=== PATIENT | female | born 1995 | race Caucasian/White ===

== ENCOUNTER → 2020-12-09 02:29 | Outpatient (CLI) | payer BC, SELFPAY ==
[2020-12-09 20:00] LABS: SARS-CoV-2 RNA PCR Negative
== END ==
PROVIDERS: Visit Provider Obstetrics & Gynecology
DX: Z01.812 Encounter for preprocedural laboratory examination (principal); Z20.822 Contact with and (suspected) exposure to COVID-19
CPT/HCPCS: C9803; U0003; U0005

== ENCOUNTER 2020-12-10 02:09 | Day surgery (SDC) | payer BC, SELFPAY ==
--- NOTE | 2020-12-09 07:40 | PM.IMHP ---
H&P: HPI History of Present Illness Date/Time: 12/09/20 07:40 [age] year 3 para 2 these last menstrual period was 09/09/2019 presents at 11 weeks gestation with missed AB. No heart tones were found 11 12 week visit. Eleven week size IUP was seen with the she opts for suction D& C. Risks benefits reviewed in full Chief Complaint: 1st trimester missed AB Review of Systems Review of Systems: All systems reviewed & are unremarkable except as noted in HPI and below PMFSH Social History Social History Smoking status: Never smoker Spiritual care concerns: No Meds Home Medications and Allergies Home Medications Medication Instructions Recorded Confirmed Type lactobacillus combination no.8 1 cell PO DAILY 12/08/20 12/08/20 History [Adult Probiotic] polyethylene glycol 3350 [Miralax] 17 g PO DAILY 12/08/20 12/08/20 History Allergies Allergy/AdvReac Type Severity Reaction Status Date / Time Penicillins Allergy Unknown Rash Verified 12/08/20 13:51 Exam Const: General: no acute distress Eyes: General: appearance normal, both eyes and all related structures Neck: Neck: supple and no JVD Thyroid: thyroid normal Resp: Effort & Inspection: normal respiratory effort Auscultation: clear to auscultation bilaterally Cardio: Rate: regular rate Rhythm: regular rhythm GI: Inspection: non-distended GI Palp: Yes Soft to palpation, No Tenderness to palpation present (GI) and No Guarding due to palpation present (GI) Auscultation: normal bowel sounds : External Female Exam: normal external appearance Speculum Exam - Vagina: normal appearance of the vagina Speculum Exam - Cervix: Cervical os closed Bimanual exam- vagina & uterus: enlarged Bimanual Exam- Adnexa, other: normal adnexae Skin: General skin exam: no rashes or lesions noted Extrem: General: normal to inspection and no edema Psych: Mental Status: mental status grossly normal Affect: normal affect Assessment and Plan Additional Plan Impression: 1st trimester missed AB Plan suction dilatation curettage
--- NOTE | 2020-12-09 13:22 | P.PNAN_ITS ---
Anes - Initial Pre Proc Eval Procedure: Operation Date: 12/10/20 13:15 Proposed Procedures p Suction Dilatation and Curettage - Cesar Cowart MD Date/Time: 12/09/20 13:22 Surgeon: Cesar Cowart MD Pre Op Diagnosis: missed AB Patient Data Age: 25 Gender: F Height: Weight: Allergies Allergy/AdvReac Type Severity Reaction Status Date / Time Penicillins Allergy Unknown Rash Verified 12/08/20 13:51 Home Medications Medication Instructions Recorded Confirmed Type lactobacillus combination no.8 1 cell PO DAILY 12/08/20 12/08/20 History [Adult Probiotic] polyethylene glycol 3350 [Miralax] 17 g PO DAILY 12/08/20 12/08/20 History Patient hx anesthesia problems: none Family hx anesthesia problems: none [facility] Surgical History Surgical History (Updated 12/09/20 @ 13:[address] DO) History of Social History Social History Smoking status: Never smoker Living arrangements: with family Spiritual care concerns: No Anes - Eval Final PreProcedure Day of Procedure 12/09/20 13:22 Patient weight: normal Heart: regular rate and rhythm Lungs: clear to auscultation and normal air movement Airway: Mallampati scale class II Neurological: alert and oriented Last oral intake: >/= 8 hours ASA classification: II Emergent: no Anesthetic plan: proceed Anesthesia type and monitoring: general GIVS and standard monitoring Informed Consent: The patient's anesthetic plan and its attendant risks and benefits were discussed with the patient/family/POA. Questions were solicited and answers provided to the satisfaction of the patient/family/POA.
--- NOTE | 2020-12-10 07:23 | WPDHPUPDATE1 ---
History and Physical Update Update Date/Time: 12/10/20 07:23 History and Physical has been reviewed, including an updated exam of the patient. There are NO changes in the patient's condition. Risks, benefits, and alternatives have been discussed and questions answered. Patient agrees to proceed with procedure.
[2020-12-10 12:00] VITALS: BP 131/84; PULSE 88; RESP 16; TEMP 37.6; O2SAT 100
[2020-12-10] MEDS: LACTATED RINGERS 1,000 ML 30 ML IV CONT ×2 (12:30→14:20)
[2020-12-10 12:38] VITALS: BMI 30.6
[2020-12-10 12:47] LABS: Hematocrit 39.3 % (37.0-47.0); Hemoglobin 13.3 g/dL (12.0-15.0)
[2020-12-10] MEDS: ACETAMINOPHEN 500 MG TABLET 1000 MG PO (13:15)
--- NOTE | 2020-12-10 14:19 | W.PM.PROC2 ---
Procedure Note - Detailed Date of Procedure 12/10/20 Pre-op Diagnosis missed AB Post-op Diagnosis same Procedure Performed Suction dilatation curettage Surgeon Cesar Cowart MD Anesthesia MAC and local Indications This is 25-year-old multiparous patient admitted for suction D and C secondary to missed AB proven by ultrasound and approximately 11 weeks Findings Products of conception Description of Procedure The patient is prepped draped in the normal sterile fashion placed in the dorsal lithotomy position. Under excellent IV sedation weighted speculum placed in posterior fornix vagina. Anterior lip of the cervix grasped with a single-tooth tenaculum and 2.5cc of 1% xylocaine anesthesia placed at 2, 4, 8, 10:00 a.m. of the cervix. Uterus sounded to 12cm. Serial dilatation with fragmented dilators performed followed by passage of the 10. Suction curette. A large amount of placental tissue was removed. When a good grating sound was heard the curette was removed. Blood loss was estimated [id number]. All sponge, needle, instrument counts were correct. There were no immediate complications Estimated Blood Loss 100 Drains No Packing No Pathology yes Complications No immediate complications Condition stable Disposition PACU
[2020-12-10 14:20] VITALS: BP 117/64; PULSE 79; RESP 14; O2SAT 92
[2020-12-10 14:50] VITALS: BP 116/64; PULSE 70; RESP 14
[2020-12-10 15:05] VITALS: BP 143/96; PULSE 66; RESP 14
== END 2020-12-10 15:15 | disposition home or self-care (01) ==
PROVIDERS: Visit Provider Obstetrics & Gynecology
PROC: (CPT 59820; principal; 2020-12-10 13:15)
DX: O02.1 Missed abortion (principal)
CPT/HCPCS: 59820; 36415; 85014; 85018; 85461; 88305; A9270; J1100; J2250; J2405; J2704; J3010; J7120

== ENCOUNTER 2021-11-22 09:34 | Outpatient (CLI) | payer OTHER, BC, SELFPAY ==
[2021-11-22 10:21] LABS: Hematocrit 34.5 % (37.0-47.0); Hemoglobin 11.3 g/dL (12.0-15.0); Mean Corpuscular HGB Conc 32.8 g/dl (32-36); Mean Corpuscular Hemoglobin 31.6 pg (26-34); Mean Corpuscular Volume 96.4 fl (80-100); Mean Platelet Volume 9.5 fl (7.4-10.4); Platelet Count Result 252 k/mm3 (150-375); Red Blood Count 3.58 M/mm3 (4.2-5.4); Red Cell Distribution Width 15.1 % (11.5-14.5); White Blood Count 7.2 K/mm3 (4.5-10.0)
--- NOTE | 2021-11-23 07:11 | P.HP_ITS ---
H&P: HPI History of Present Illness Date/Time: 11/23/21 07:11 Chief Complaint: term with gestational hypertension Narrative: sh 25-year-old multiparous admitted at 30 8 half weeks gestation for repeat section. She was originally scheduled in a week however her blood pressure has been rising. She has good dates with an early ultrasound. [facility] Surgical History Surgical History History of Social History Social History Smoking status: Never smoker Spiritual care concerns: No Meds Home Medications and Allergies Home Medications Medication Instructions Recorded Confirmed Type lactobacillus combination no.8 3 1 cell PO DAILY 12/08/20 12/10/20 History billion cell capsule polyethylene glycol 3350 17 17 g PO DAILY 12/08/20 12/10/20 History gram/dose oral powder (Miralax) hydrocodone 5 mg-acetaminophen 325 1 tablet PO Q4H PRN pain #20 tabs 12/10/20 Rx mg tablet Allergies Allergy/AdvReac Type Severity Reaction Status Date / Time Penicillins Allergy Unknown Rash Verified 12/10/20 14:06 Exam Resp: Effort & Inspection: normal respiratory effort Cardio: Rate: regular rate Rhythm: regular rhythm GI: Inspection: normal to inspection : External Female Exam: normal external appearance Speculum Exam - Vagina: normal appearance of the vagina Speculum Exam - Cervix: Cervical os closed Bimanual exam- vagina & uterus: enlarged ( Gravid and soft) H&P: Results Labs Labs: Short CBC 11/22/21 Range/Units 09:56 WBC 7.2 (4.5-10.0) K/mm3 Hgb 11.3 L (12.0-15.0) g/dL Hct 34.5 L (37.0-47.0) % Plt Count 252 (150-375) k/mm3 Assessment and Plan Assessment and plan (1) Term : Code(s): Z34.90 - Encounter for supervision of normal , unspecified, unspecified trimester Status: Acute (2) Previous section: Code(s): Z98.891 - History of uterine scar from previous surgery Status: Acute (3) Gestational hypertension: Code(s): O13.9 - Gestational [-induced] hypertension without significant proteinuria, unspecified trimester Status: Acute Plan repeat low-transverse section
[2021-11-23 12:12] LABS: Rapid Plasma Reagin Non-Reactive (NonReactive)
== END 2021-11-22 09:35 | disposition home or self-care (01) ==
LOC: ANHLAB 09:41
PROVIDERS: Visit Provider Obstetrics & Gynecology
DX: Z34.93 Encounter for supervision of normal pregnancy, unspecified, third trimester (principal); Z3A.00 Weeks of gestation of pregnancy not specified
CPT/HCPCS: 36415; 85027; 86592; 86850; 86900; 86901

== ENCOUNTER 2021-11-24 05:39 | Inpatient (IN) | payer OTHER, BC, SELFPAY ==
--- NOTE | 2021-11-23 07:14 | HP_ITS ---
This report was moved to the correct visit, [id number] on 11/24/21. Original report was signed by Cesar Cohen MD 11/23/21 0714. H&P: HPI History of Present Illness Date/Time: 11/23/21 07:11 Chief Complaint: term with gestational hypertension Narrative: feliz 25-year-old multiparous admitted at 30 8 half weeks gestation for repeat section. She was originally scheduled in a week however her blood pressure has been rising. She has good dates with an early ultrasound. [facility] Surgical History Surgical History History of Social History Social History Smoking status: Never smoker Spiritual care concerns: No Meds Home Medications and Allergies Home Medications Medication Instructions Recorded Confirmed Type lactobacillus combination no.8 3 1 cell PO DAILY 12/08/20 12/10/20 History billion cell capsule polyethylene glycol 3350 17 17 g PO DAILY 12/08/20 12/10/20 History gram/dose oral powder (Miralax) hydrocodone 5 mg-acetaminophen 325 1 tablet PO Q4H PRN pain #20 tabs 12/10/20 Rx mg tablet Allergies Allergy/AdvReac Type Severity Reaction Status Date / Time Penicillins Allergy Unknown Rash Verified 12/10/20 14:06 Exam Resp: Effort & Inspection: normal respiratory effort Cardio: Rate: regular rate Rhythm: regular rhythm GI: Inspection: normal to inspection : External Female Exam: normal external appearance Speculum Exam - Vagina: normal appearance of the vagina Speculum Exam - Cervix: Cervical os closed Bimanual exam- vagina & uterus: enlarged ( Gravid and soft) H&P: Results Labs Labs: Short CBC 11/22/21 Range/Units 09:56 WBC 7.2 (4.5-10.0) K/mm3 Hgb 11.3 L (12.0-15.0) g/dL Hct 34.5 L (37.0-47.0) % Plt Count 252 (150-375) k/mm3 Assessment and Plan Assessment and plan (1) Term : Code(s): Z34.90 - Encounter for supervision of normal , unspecified, unspecified trimester Status: Acute (2) Previous section: Code(s): Z98.891 - History of uterine scar from previous surgery Status: Acute (3) Gestational hypertension: Code(s): O13.9 - Gestational [-induced] hypertension without significant proteinuria, unspecified trimester Status: Acute Plan repeat low-transverse section This dictation may have been done utilizing a voice recognition system. Attempts have been made to correct errors. However, there may be uncorrected grammatical, spelling, and recognition errors present. Report Initialized date/time: Cesar Cohen MD 11/23/21713 Electronically signed by: Cesar Cohen MD 11/23/21713 [facility]
[2021-11-24] VITALS (57 sets, daily range): BP systolic 98–143; BP diastolic 53–89; PULSE 55–131; RESP 12–18; TEMP 36.1–37; O2SAT 96–100; BMI 31.4
--- NOTE | 2021-11-24 05:18 | WPDHPUPDATE1 ---
History and Physical Update Update Date/Time: 11/24/21 05:18 History and Physical has been reviewed, including an updated exam of the patient. There are NO changes in the patient's condition. Risks, benefits, and alternatives have been discussed and questions answered. Patient agrees to proceed with procedure.
--- NOTE | 2021-11-24 05:39 | LDADM ---
This patient, Rachael Clements, was admitted to Labor/Delivery/Recovery 119 on 11/24/21 at 05:39. Plans for labor, pain management and were discussed with patient. Patient/family oriented to hospital policies and general routines including ID bracelet, bed and alarms, visiting hours, pain management, procedures, bathroom and other care routines, personal items, smoking policy, room service/diet and guest tray routines, security routines, and visiting hours. Patient/Family are encouraged to report perceived risks to care and to ask questions if they do not understand what they are told or what they should do. See OBIX for further documentation.
[2021-11-24] MEDS: LACTATED RINGERS 1,000 ML 999 ML IV CONT (06:21)
--- NOTE | 2021-11-24 06:58 | WPDANESEPPF ---
Anes - Initial Pre Proc Eval Procedure: Operation Date: 11/24/21 07:30 Proposed Procedures p Repeat Section - Cesar Calderon MD Date/Time: 11/24/21 06:58 Surgeon: Cesar Calderon MD Pre Op Diagnosis: repeat c- section/preadmit Patient Data Age: 25 Gender: F Height: 1.7 m Weight: 91 kg Last Vital Signs Pulse 95 11/24/21 06:31 BP 127/78 11/24/21 06:31 O2 Del Method Room Air 11/24/21 06:41 Allergies Allergy/AdvReac Type Severity Reaction Status Date / Time Penicillins Allergy Unknown Rash Verified 12/10/20 14:06 Home Medications Medication Instructions Recorded Confirmed Type hydrocodone 5 mg-acetaminophen 325 1 tablet PO Q4H PRN pain #20 tabs 12/10/20 Rx mg tablet hydrocodone 5 mg-acetaminophen 325 1 tablet PO Q4H PRN pain #30 tabs 11/24/21 Rx mg tablet Laboratory Tests 11/24/21 06:24 Sodium Pending Potassium Pending Chloride Pending Carbon Dioxide Pending Anion Gap Pending BUN Pending Creatinine Pending Estim Creat Clear Calc Pending Estimated GFR Pending Glucose Pending Uric Acid Pending Calcium Pending Total Bilirubin Pending AST Pending ALT Pending Alkaline Phosphatase Pending Total Protein Pending Albumin Pending Patient hx anesthesia problems: none Family hx anesthesia problems: none Results Review: All pre-operative results and documents have been reviewed as part of the pre-operative evaluation. [facility] Past Medical History Medical History (Updated 11/24/21 @ 06:[address] DO) Gestational hypertension Surgical History Surgical History (Updated 11/23/21 @ 07:14 by Cesar Calderon MD) History of Social History Social History Smoking status: Never smoker Second hand tobacco smoke exposure: No Spiritual care concerns: No Anes - Eval Final PreProcedure Day of Procedure 11/24/21 06:58 Patient weight: obese Heart: regular rate and rhythm Lungs: clear to auscultation and normal air movement Airway: Mallampati scale class II Neurological: alert and oriented Last oral intake: >/= 8 hours ASA classification: III Emergent: no Anesthetic plan: proceed Anesthesia type and monitoring: regional spinal and standard monitoring Results Review: All pre-operative results and documents have been reviewed as part of the pre-operative evaluation. Informed Consent: The patient's anesthetic plan and its attendant risks and benefits were discussed with the patient/family/POA. Questions were solicited and answers provided to the satisfaction of the patient/family/POA.
[2021-11-24 07:00] LABS: Alanine Aminotransferase 37 U/L (6-35); Albumin Level 3.4 g/dL (3.5-5.1); Alkaline Phosphatase 78 U/L (38-126); Anion Gap 8 mmol/L (8-16); Aspartate Amino Transferase 47 U/L (14-36); Bilirubin,Total 0.2 mg/dL (0.2-1.3); Blood Urea Nitrogen 8 mg/dL (7-17); Calcium 8.6 mg/dL (8.4-10.2); Carbon Dioxide 20 mmol/L (22-30); Chloride 106 mmol/L (98-107); Estimated CRCL calculation 165 ml/min; Estimated Glomerular Filt Rate > 60; Glucose 96 mg/dL (65-110); Potassium 3.6 mmol/L (3.4-5.0); Sodium 134 mmol/L (137-145)
[2021-11-24] MEDS: LACTATED RINGERS 1,000 ML 125 ML IV CONT ×2 (07:08→08:55)
--- NOTE | 2021-11-24 07:40 | PC.NURSE ---
Actual administration time for Ancef 2gm was 724 and was complete at 0740
[2021-11-24] MEDS: ceFAZolin 2 GM/D5W 50 ML 2 GM/50 ML BAG IVPB (07:55)
[2021-11-24] MEDS: KETOROLAC 30 MG/ML VIAL (*BKC) IV PUSH ×2 (08:05→12:41)
--- NOTE | 2021-11-24 08:06 | P.OP_ITS ---
Procedure Note - Detailed Date of Procedure 11/24/21 Pre-op Diagnosis repeat c- section/preadmit Post-op Diagnosis Other (Gestational hypertension) Procedure Performed Repeat low-transverse section Surgeon Cesar Calderon MD Anesthesia Spinal Indications This is a ball-tip with previous section at term and mild gestational hypertension at 38 half weeks gestation Findings Male infant 6lb 15oz with Apgars of 9 and 915minutes respectively normal- appearing uterus and ovaries Description of Procedure Patient was prepped draped in the normal sterile fashion placed in the supine position. Under excellent spinal anesthetic the abdomen was entered in Pfannenstiel fashion progressive layers to the fascia. Fascia was incised in midline carried in upward outward fashion bilaterally. Underlying muscles sharply dissected and parietal peritoneum 0 by Agata clamps. This was carried superiorly and inferiorly to dome of bladder. Bladder blade placed bladder flap formed. Bladder blade returned. A low-transverse incision made and delivered the KAUSHAL position. Nuchal cord was noted to be loose x1 around the occiput. Anterior posterior shoulder delivered spontaneously. Cord clamped x2 was cut and passed off the table adnexa cry. Placenta delivered intact manually. Uterus delivered on the abdomen wrapped in moist towel. After assuring no membranes or debris remained in the uterus, the uterus was closed with continuous running locking 0 Vicryl from lateral edge to lateral edge. This was followed by 2nd imbricating running locking 0 Vicryl from lateral edge to lateral edge. Hemostasis was assured. Ovaries and tubes appeared within normal limits in the uterus returned to the abdomen. Laps removed and accounted for. Debris was removed from the pelvis. Irrigation undertaken to clear. The incision on the uterus inspected 1 last time noted be hemostatic. The fascia closed with continuous running 0 Vicryl from lateral edge to midline bilaterally. Irrigation of the subcutaneous layer the skin closed with 4 Monocryl and glue. The patient tolerated the procedure well. All sponge, needle, instrument counts were correct. There were no immediate complications Estimated Blood Loss 315 Drains No Packing No Pathology None sent Complications No immediate complications Condition Stable Disposition PACU
[2021-11-24] MEDS: HYDROcodone/acetaminophen (*CRX) 5-325 MG TABLET 1 TAB PO ×2 (12:40→20:42)
[2021-11-24] MEDS: SIMETHICONE 80 MG TAB.CHEW PO (12:40)
--- NOTE | 2021-11-24 13:22 | PC.NURSE ---
[id number] Print out of unit status shows mother is going to bottle feed. Primary RN calls for assistance. Introductions were made, then consulted with patient to assess needs related to . Mother with minimal experience led the conversation with her?plans to feed?her infant. Mother states she has a history of stopping per OB doctor's suggestion due to her being overwhelmed after two weeks. Mother states she thought feeding her infant had to be either all formula or all and did not realize that there could be a combination of each. Resources provided for inpatient and outpatient services using a resource guide and mom/baby guide. Mother voiced understanding of information and requested assistance with her sleepy . Mother works well with her infant with encouragement and education. Mother states infant breastfed good downstairs for 10 minutes on each breast initially and now verbalizes understands infant may be in his sleepy phase. Encouraged understanding of the benefits of skin to skin (unwrapping and placing vertically on her chest), responsive feeding and how to watch for early feeding signs, how to stimulate for with massage, frequency of feeding on demand about every 8-12 times in 24 hours (every 2-3 hours), milk production, duration of feeding, signs of adequate intake/output and how to record on the feeding sheet. Mother demonstrated education regarding hand expression and finger fed drops of colostrum to her infant. Reviewed good handwashing when or touching the breast/nipples to prevent infection. Resources used to facilitate learning were used with the pie demonstration, visual handouts, tool, mom and baby guide. Mother voiced understanding of responsive feedings, stimulating with skin to skin, hand expressed colostrum, stimulating touch using massage, talking to to encourage if it has been 2 -3 hours since the start of the last , to call if infant does not latch, needs assistance waking up, or there is discomfort with . Reported to the primary RN. Reported to primary RN.
[2021-11-25] MEDS: IBUPROFEN 600 MG TABLET PO ×3 (02:13→16:05)
[2021-11-25] MEDS: HYDROcodone/acetaminophen (*CRX) 5-325 MG TABLET 1 TAB PO ×2 (04:25→09:14)
[2021-11-25 04:30] VITALS: BP 116/69; PULSE 78; RESP 14; TEMP 36.7; O2SAT 98
[2021-11-25 05:14] LABS: Basophils Percent Auto 0.2 % (0.2-1.2); Eosinophils Absolute Auto 0.2 K/mm3 (0-0.3); Eosinophils Percent Auto 1.9 % (0-4.4); Hematocrit 29.4 % (37.0-47.0); Hemoglobin 9.8 g/dL (12.0-15.0); Immature Granulocyte Absolute 0.03 K/mm3 (0.00-0.031); Immature Granulocyte Percent A 0.4 % (0-0.5); Lymphocytes Absolute Auto 0.98 K/mm3 (0.9-3.2); Lymphocytes Percent Auto 12.2 % (18.3-44.2); Mean Corpuscular HGB Conc 33.3 g/dl (32-36); Mean Corpuscular Hemoglobin 32.1 pg (26-34); Mean Corpuscular Volume 96.4 fl (80-100); Mean Platelet Volume 9.5 fl (7.4-10.4); Monocytes Absolute Auto 0.6 K/mm3 (0.1-0.6); Monocytes Percent Auto 7.6 % (2.6-8.5); Neutrophils Absolute Auto 6.2 K/mm3 (1.3-6.7); Neutrophils Percent Auto 77.7 % (45.5-73.1); Platelet Count Result 201 k/mm3 (150-375); Red Blood Count 3.05 M/mm3 (4.2-5.4); Red Cell Distribution Width 15.4 % (11.5-14.5)
--- NOTE | 2021-11-25 07:18 | P.DS_ITS ---
DS: Admitting Diagnosis Discharge Date 11/25/2021 Admitting Diagnosis term with previous section DS: Discharge Diagnosis Discharge Diagnosis (1) Gestational hypertension: Code(s): O13.9 - Gestational [-induced] hypertension without significant proteinuria, unspecified trimester Status: Acute (2) Previous section: Code(s): Z98.891 - History of uterine scar from previous surgery Status: Acute (3) Term : Code(s): Z34.90 - Encounter for supervision of normal , unspecified, unspecified trimester Status: Acute DS: Summary Hospital Course Reason for hospitalization: term with previous section Hospital Course: patient was admitted for repeat section at term. Her had been uncomplicated short of mild hypertension. PH labs were normal and her blood pressure remained normal post section. Her hospital course was unremarkable. She was up, voiding without difficulty, , ambulating, generally without complaints. Time Spent with Patient Time attestation: Total time spent providing and/or coordinating discharge services: DS: Data Data Completed and Pending Labs on day of discharge: Labs from last 24 hours 11/25/21 04:20 WBC 8.0 RBC 3.05 L Hgb 9.8 L Hct 29.4 L MCV 96.4 MCH 32.1 MCHC 33.3 RDW 15.4 H Plt Count 201 MPV 9.5 Immature Gran % (Auto) 0.4 Neut % (Auto) 77.7 H Lymph % (Auto) 12.2 L Mcmullen % (Auto) 7.6 Eos % (Auto) 1.9 Baso % (Auto) 0.2 Lymph # (Auto) 0.98 Mcmullen # (Auto) 0.6 Eos # (Auto) 0.2 Baso # (Auto) 0.0 Abs Immat Gran (auto) 0.03 Absolute Neuts (auto) 6.2 Absolute Nucleated RBC 0.0 Nucleated RBC % 0.0 Discharge Plan Discharge Attending physician on discharge: Cesar Cohen Discharging Clinician: Cesar Cohen Patient Disposition: Home, Self-Care Activity: no straining, may drive after 2 weeks and pelvic rest Diet: heart healthy Wound Care Instructions: follow printed instructions Stand Alone Forms: General Discharge Instructions Follow-up/Referrals: Cesar Cohen MD [Physician] - Discharge Medications: New hydrocodone-acetaminophen 5-325 mg tablet 1 tablet PO Q4H PRN (Reason: pain) Qty: 30 0RF hydrocodone-acetaminophen 5-325 mg tablet 1 tablet PO Q4H PRN (Reason: pain) Qty: 30 0RF Continued hydrocodone-acetaminophen 5-325 mg tablet 1 tablet PO Q4H PRN (Reason: pain) Qty: 20 0RF Date of admission: 11/24/21 05:39 Primary Care Provider: PHYSICIAN,CALCULATOR OPERATOR Admitting Provider: Cesar Cohen Attending physician on admission: Cesar Cohen Condition: Stable
[2021-11-25 07:35] VITALS: BP 122/76; PULSE 85; RESP 18; TEMP 36.4; O2SAT 100
[2021-11-25 08:00] VITALS: PULSE 85; RESP 18; O2SAT 100
[2021-11-25] MEDS: DOCUSATE SODIUM 100 MG CAPSULE PO ×2 (09:13→16:05)
[2021-11-25] MEDS: MULTIVIT/MIN/PREN/FOL AC/IRON TABLET 1 TAB PO (09:13)
[2021-11-25] MEDS: POLYSACCHARIDE IRON COMPLEX 150 MG CAPSULE PO ×3 (09:13→16:05)
[2021-11-25 11:50] VITALS: BP 134/75; PULSE 79; RESP 18; TEMP 36.4; O2SAT 99
--- NOTE | 2021-11-25 13:10 | PC.NURSE ---
Patient was given the opportunity to view the discharge video Mother & Baby Care, The First Two Weeks and to ask questions. Patient declined viewing the video and has been given the mother/baby guide for home reference.
[2021-11-25] MEDS: HYDROcodone/acetaminophen (*CRX) 10-325 MG TABLET 1 TAB PO (14:01)
--- NOTE | 2021-11-25 14:09 | PC.NURSE ---
1742 - Discussion with the parents and Primary RN Vannessa regarding how to care and use a nipple shield. Mother verbalizes she is able to independently latch infant with appropriate positioning/alignment without the nipple shield. She denies any nipple pain, states there is some soreness, and is responsively . Infant is currently meeting outcomes for weight, output, jaundice and feeding frequencies of 8-12 times in 24 hours. Mother declines any additional assistance/education at this time. Mother is encouraged to call for assistance if her infant doesn?t latch or there is discomfort with latching. Mother voiced understanding of information shared and mom and baby guide reviewed for additional resource information .
[2021-11-25] MEDS: SIMETHICONE 80 MG TAB.CHEW PO (14:45)
--- NOTE | 2021-11-25 15:03 | WPDANLDPN2 ---
Anes-Prog Note L&D Date/Time: 11/25/21 15:03 Comfortable throughout: section Neuraxial method: spinal Epidural/Spinal procedure site: clean & non-tender Neuro status: Neuro function grossly intact. Cardiovascular status: normal Respiratory status: normal Airway patency: baseline Mental status: baseline Post-Op hydration status: normal Vital Signs: Last Vital Signs Temp 36.4 C L 11/25/21 11:50 Pulse 79 11/25/21 11:50 Resp 18 11/25/21 11:50 BP 134/75 11/25/21 11:50 Pulse Ox 99 11/25/21 11:50 O2 Del Method Room Air 11/25/21 08:00 Pain score (VAS): 04/25 I/O: Intake & Output 11/24/21 11/25/21 11/25/21 23:59 07:59 15:59 Intake Total 1000 2500 1620 Output Total 350 2800 900 Balance 650 -300 720 Post-procedural complaints: none Patient feedback: Patient satisfied with anesthetic care.
--- NOTE | 2021-11-25 15:04 | WPDANLDNPN2 ---
Anes-Prog Note L&D-Neuraxial Date/Time: 11/25/21 15:04 Neuraxial medications: intrathecal PF morphine Opiod-related complaints: none Patient feedback: Patient satisfied with post-operative pain management.
[2021-11-25 16:09] VITALS: BP 140/91; PULSE 83; RESP 18; TEMP 36.3; O2SAT 99
[2021-11-26 10:29] VITALS: BP 132/92; PULSE 82; RESP 20; TEMP 36.8; O2SAT 100
== END 2021-11-25 18:00 | disposition home or self-care (01) | DRG 788 ==
LOC: ANHLDR 05:44 → ANHOB2 10:33
PROVIDERS: Admitting Provider Obstetrics & Gynecology; Visit Provider Obstetrics & Gynecology
PROC: 10D00Z1 Extraction of Products of Conception, Low, Open Approach (ICD-10-PCS; CPT 59514; principal; 2021-11-24 07:30)
DX: O34.219 Maternal care for unspecified type scar from previous cesarean delivery (principal); O13.4 Gestational [pregnancy-induced] hypertension without significant proteinuria, complicating childbirth; O69.81X0 Labor and delivery complicated by cord around neck, without compression, not applicable or unspecified; Z3A.38 38 weeks gestation of pregnancy; Z37.0 Single live birth
CPT/HCPCS: 36415; 80053; 84550; 85025; 85027; 86592; 86850; 86900; 86901; A9270; J0131; J0690; J1885; J2274; J2370; J2405; J2590; J7120

== ENCOUNTER 2022-07-22 07:03 | Emergency (ER) | payer OTHER, BC, SELFPAY ==
[2022-07-22] VITALS (8 sets, daily range): BP systolic 107–134; BP diastolic 74–95; PULSE 82–99; RESP 18–24; TEMP 36.7; O2SAT 97–100
--- NOTE | ~2022-07-22 | US_ITS ---
US venous doppler [facility] DATE: 07/22/2022 07:52 INDICATION: Bilateral calf pain, right greater than left TECHNIQUE: Real-time and color flow imaging and Doppler analysis of the veins of the lower extremitie s COMPARISON: None FINDINGS: The greater saphenous veins are patent. There is spontaneous and phasic flow and normal aug mentation and color flow signal and normal compression of the veins of the lower extremities. IMPRESSION: Normal examination; no evidence of deep venous thrombosis Reviewed, dictated and finalized at [facility]. Reviewed, dictated and finalized at [facility].
--- NOTE | 2022-07-22 07:26 | ED.GENADULT ---
HPI - General Adult General Chief complaint: Extremity Problem,Nontraumatic Stated complaint: leg pain Time Seen by Provider: 07/22/22 07:15 History of Present Illness HPI narrative: 26-year-old female presenting to the emergency department for evaluation of right calf pain that has been persistent for approximate the last week. Patient states approximately 10 days ago she had breast augmentation and tummy tuck. Patient states that approximately 3 days after the surgical procedure she began having some right calf pain. Patient reports she did discuss this with her physician and last night she was instructed to present to the emergency department for evaluation. Patient states that the pain from the surgical procedure has continued to improve. Patient denies any shortness of breath but does states she has some anxiety. Patient states that the calf pain is worsened on the right but she is beginning to have some calf pain on the left as well. Patient has been taking ibuprofen for pain control. Related Data Allergies Allergy/AdvReac Type Severity Reaction Status Date / Time Penicillins Allergy Unknown Rash Verified 07/22/22 07:14 Review of Systems Review of Systems: All systems reviewed & are unremarkable except as noted in HPI and below PMFSH Past Medical History Medical History (Updated 07/22/22 @ 08:59 by Carlton Cannon MD) Gestational hypertension Surgical History Surgical History (Updated 11/23/21 @ 07:14 by Cesar Calderon MD) History of Social History Social History Smoking status: Never smoker Second hand tobacco smoke exposure: No Living arrangements: with family Spiritual care concerns: No Exam Narrative: APPEARANCE: Well appearing, no pain, no distress, well-nourished. HEAD: normocephalic, atraumatic. EYES: PERRLA/EOMI, conjunctivae clear. NOSE: Normal no drainage NECK: Supple. No adenopathy, no masses. RESPIRATORY: Airway patent, respirations nonlabored. Clear to auscultation bilaterally, no rales, rhonchi, wheezing. CARDIOVASCULAR: Regular rate and rhythm without murmurs rubs or gallops. ABDOMINAL: Soft, nontender, nondistended, normal bowel sounds MUSCULOSKELETAL: Moves all extremities. No lower extremity edema or swelling. Patient does have right calf tenderness to palpation. NEURO: Alert. Cranial nerves II through XII intact. Grossly intact SKIN: Warm, dry. Normal Color Course Course Emergency Course: 26-year-old female postop presenting for evaluation of possible DVT. Patient is nontachycardic and is saturating at 100% on room air. Patient is normotensive. Patient does have right calf tenderness to palpation. Patient reports she is also having some left calf pain that just started. Bilateral lower extremity Dopplers were ordered to DVT. Patient was updated on the plan for evaluation. All questions and concerns were addressed up to this point. Results were negative for DVT. Patient was updated the results of her ultrasound studies. Patient was encouraged to take Tylenol ibuprofen for pain control. Patient was also encouraged of close follow-up with her physicians. Patient was educated on reasons to return to the emergency department. All questions and concerns were addressed and patient was well-appearing at time of discharge. Suspect etiology is musculoskeletal with low concern for DVT with negative ultrasounds. Vital Signs Vital signs: Vital Signs Temperature 98.0 F 07/22/22 07:08 Pulse Rate 94 07/22/22 07:08 Respiratory Rate 18 07/22/22 07:08 Blood Pressure 134/83 07/22/22 07:08 Pulse Oximetry 100 07/22/22 07:08 Oxygen Delivery Room Air 07/22/22 07:08 Temperature 98.0 F 07/22/22 07:08 Pulse Rate 99 07/22/22 09:01 Respiratory Rate 20 07/22/22 09:01 Blood Pressure 125/95 H 07/22/22 09:01 Pulse Oximetry 98 07/22/22 09:01 Oxygen Delivery Room Air 07/22/22 07:08
== END 2022-07-22 09:19 | disposition home or self-care (01) ==
PROVIDERS: Emergency Provider Emergency Medicine
DX: M79.605 Pain in left leg (principal); M79.604 Pain in right leg
CPT/HCPCS: 93970; 99284